=== PATIENT | male | born 1960 | race Caucasian/White ===

== ENCOUNTER 2024-08-01 14:33 | Emergency (ER) | payer MEDICAID ==
[~2024-08-01] VITALS: Ht 170.2 cm; Wt 74.8 kg
[2024-08-01 14:55] VITALS: BP 146/107; PULSE 92; RESP 16; TEMP 98.6; O2SAT 99
[2024-08-01 16:35] LABS: BASOPHILS % 0.4 % (0.0-2.0); EOSINOPHILS % 1.9 % (0.0-5.0); HEMOGLOBIN. 15.9 g/dL (14.0-18.0); LYMPHOCYTES % 36.9 % (20.0-50.0); MEAN CORPUSCULAR HEMOGLOBIN 32.4 pg (28.0-32.0); MEAN CORPUSCULAR HGB CONC 33.9 g/dL (31.0-37.0); MEAN CORPUSCULAR VOLUME 95.7 fL (80.0-94.0); MONOCYTES % 10.3 % (2.0-8.0); NEUTROPHILS % 50.5 % (40.0-76.0); RED BLOOD CELL COUNT 4.91 mill/uL (4.7-6.1); RED CELL DISTRIBUTION WIDTH 13.4 % (11.6-14.6)
[2024-08-01 16:37] LABS: DIFFERENTIAL COMMENT 1
[2024-08-01 16:43] LABS: CHLORIDE 106 mEq/L (98-107); POTASSIUM 4.5 mEq/L (3.5-5.1); SODIUM 139 mEq/L (136-145)
[2024-08-01 16:44] LABS: CARBON DIOXIDE 28 mEq/L (21-32)
[2024-08-01 16:45] LABS: CALCIUM 9.8 mg/dL (8.7-10.4)
[2024-08-01 16:49] LABS: GLUCOSE 82 mg/dL (70-105); UREA NITROGEN BLOOD 13 mg/dL (9-23)
[2024-08-01 16:50] LABS: TROPONIN I HIGH SENSITIVITY 7 ng/L (3.0-53)
[2024-08-01 17:24] LABS: PLATELET 199 x1000/uL (130-400)
== END 2024-08-01 18:30 | disposition home or self-care (01) ==
LOC: ER 15:19
DX: I48.91 Unspecified atrial fibrillation (principal)
CPT/HCPCS: 36415; 71045; 80048; 84484; 85025; 93005; 99285